=== PATIENT | male | born 1960 | race Caucasian/White ===

== ENCOUNTER 2018-08-01 00:56 | Emergency (ER) | payer OTHER ==
[~2018-08-01] VITALS: Ht 177.8 cm; Wt 97.7 kg
[~2018-08-01 00:56] MED LIST: ASPIRIN 32325 MG/TAB PO; EFFIENT10 MG PO; LIPITOR 40MG TA40 MG PO; NO HOME MEDICATIONS; PROBIOTIC-SUNMARK; TOPROL XL 25MG25 MG PO
[2018-08-01] MEDS ORDERED: GLUCOPHAGE XR500 M1 PO (01:07)
[2018-08-01] MEDS ORDERED: NITROSTAT0.4 MG/TAB SL (01:08)
[2018-08-01 01:25] LABS: BASO # 0.1 (0.0-0.2); BASO % 0.7 % (0.0-2.0); EOS # 0.3 (0.0-0.7); EOS % 3.2 % (0-4.0); GRAN # 4.9 (1.4-6.5); GRAN % 55.5 % (42.2-75.2); HEMATOCRIT 40.7 % (42.0-52.0); HEMOGLOBIN 12.8 g/dl (13.5-18.0); LYMPH # 2.6 (1.2-3.4); LYMPH % 29.4 % (20.0-51.0); MEAN CELL VOLUME 66 fl (80.0-100.0); MEAN CORPUSCULAR HEMOGLOBIN 21 pg (27.0-31.0); MEAN CORPUSCULAR HGB CONC 31 g/dl (33.0-37.0); MONO # 0.9 (0.1-0.6); MONO % 10.6 % (1.7-9.3); PLATELET COUNT 184 K/mm3 (130-400); RED BLOOD COUNT 6.19 M/mm3 (4.20-5.60); REDCELL DISTRIBUTION WIDTH-CV 17.8 % (11.5-14.5)
[2018-08-01 01:29] LABS: INR 1.1 (0.8-3.0); PROTHROMBIN TIME 12.7 SECONDS (9.7-12.8)
[2018-08-01 01:31] LABS: PARTIAL THROMBOPLASTIN TIME 26.7 SECONDS (26.0-37.0)
[2018-08-01] MEDS ORDERED: LIPITOR 40MG TA40 MG PO (01:31)
[2018-08-01 01:33] LABS: ALANINE AMINOTRANSFERASE 61 U/L (21-72); ALBUMIN 4.4 gm/dL (3.5-5.0); ALKALINE PHOSPHATASE 48 U/L (50-136); ANION GAP 13 mmol/L (7-16); AST,SGOT 38 U/L (15-37); BILIRUBIN,TOTAL 1.1 mg/dL (0.0-1.0); BLOOD UREA NITROGEN 20 mg/dL (9-20); CALCIUM 9.2 mg/dL (8.4-10.2); CARBON DIOXIDE 27 mmol/L (22-30); CHLORIDE 95 mmol/L (98-107); CREATININE, serum 1.31 mg/dL (0.66-1.25); GLUCOSE 126 mg/dL (74-106); POTASSIUM 3.7 mmol/L (3.4-5.0); SODIUM 135 mmol/L (137-145); TOTAL PROTEIN 7.4 gm/dL (6.4-8.2)
[2018-08-01 01:46] LABS: TROPONIN-I < 0.012 ng/mL (0.000-0.034)
[2018-08-01 02:20] LABS: TSH w REFLEX 5.06 uIU/mL (0.465-4.680)
[2018-08-01] MEDS ORDERED: PROTONIX 40MG T40 MG PO (05:14)
[2018-08-01 05:27] VITALS: BP 138/80; PULSE 65
== END 2018-08-01 05:28 | disposition home or self-care (01) ==
LOC: COL.ER 00:56
PROVIDERS: Emergency Medicine
DX: R00.2 Palpitations (principal); E11.9 Type 2 diabetes mellitus without complications; I25.10 Atherosclerotic heart disease of native coronary artery without angina pectoris; Z90.89 Acquired absence of other organs; Z95.5 Presence of coronary angioplasty implant and graft; Z79.84 Long term (current) use of oral hypoglycemic drugs; Z79.82 Long term (current) use of aspirin
CPT/HCPCS: J7030

== ENCOUNTER 2021-03-31 12:39 | Outpatient (RCR) | payer OTHER ==
[~2021-03-31 12:39] MED LIST changes: +GLUCOPHAGE XR500 M1 PO; +NITROSTAT0.4 MG/TAB SL; +PROTONIX 40MG T40 MG PO
== END 2021-06-29 | disposition home or self-care (01) ==
LOC: WSST
DX: R05 Cough (principal)

== ENCOUNTER → 2021-04-14 | Outpatient (CLI) | payer OTHER | LOC: COL.RAD 04-07 15:30 | DX: R05 Cough (principal) ==

== ENCOUNTER 2022-12-15 14:55 | Outpatient (RCR) | payer OTHER ==
[~2022-12-15 14:55] MED LIST changes: -ASPIRIN 32325 MG/TAB PO; +ASPIRIN 81M81 MG/TA2 PO; +BRILINTA90 MG PO; +LIPITOR 80MG80 MG PO; +TRULICITY1.5 MG/0.5 SQ
== END 2022-12-21 | disposition home or self-care (01) ==
LOC: COL.CR
DX: Z48.812 Encounter for surgical aftercare following surgery on the circulatory system (principal); Z95.5 Presence of coronary angioplasty implant and graft

== ENCOUNTER 2023-01-14 15:06 | Outpatient (RCR) | payer OTHER | END 2023-01-17 15:08 | disposition home or self-care (01) | LOC: COL.CR 15:06 | DX: Z48.812 Encounter for surgical aftercare following surgery on the circulatory system (principal); Z95.5 Presence of coronary angioplasty implant and graft ==